=== PATIENT | male | born 1960 | race Caucasian/White ===

== ENCOUNTER 2017-11-20 17:34 | Emergency (ER) | payer BC ==
--- NOTE | 2017-11-20 21:04 | EDM.PDOC ---
ED HPI GENERAL MEDICAL PROBLEM - General Chief Complaint: Back Pain or Injury Stated Complaint: BELIEVES THERE IS A RIB OUT OF PLACE Time Seen by Provider: 11/20/17 19:24 Source of Information: Reports: Patient, Family History Limitations: Reports: No Limitations - History of Present Illness INITIAL COMMENTS - FREE TEXT/NARRATIVE: This is a 57-year-old male. Previous this week he did some straining and felt like he popped a rib in his anterior chest along the costochondral margin. He states he feels like he popped out of place. He went to see a chiropractor who apparently put the rib back into place and he felt like he was doing good. Then he did some work and a confined space having to use his arms to get him into the confined space and out of it and he feels like he popped a rib out of place again. He says when it hurts and hurts in the front and then seems to radiate around to the back on the right side. It is very painful to cough and deep breathe. He did go to the walk-in clinic yesterday was placed on some antibiotics because of his cough and he was tested for the flu that was negative. I explained to him we don't have a chiropractor on staff and he would need to follow-up with his own chiropractor duplicates his rib back into place. Right Chest Pain Score (Numeric/FACES): 9 - Related Data Allergies Allergy/AdvReac Type Severity Reaction Status Date / Time No Known Allergies Allergy Verified 11/20/17 18:05 Home Meds: Home Meds Insulin Aspart [NovoLOG] 1 dose SUBCUT ASDIRECTED 11/20/17 [History] Insulin Glargine,Hum.Rec.Anlog [Lantus Solostar] 80 units SUBCUT QAM 11/20/17 [ History] Lisinopril 2.5 mg PO DAILY 11/20/17 [History] Metoprolol Succinate [Toprol XL] 50 mg PO QPM 11/20/17 [History] Metoprolol Succinate [Toprol Xl] 200 mg PO QAM 11/20/17 [History] Orphenadrine [Norflex] 100 mg PO BID PRN #15 tab.er 11/20/17 [Rx] Past Medical History Other Cardiovascular History: defibrillator Other Musculoskeletal History: partial tear right rotator culff - Past Surgical History Cardiovascular Surgical History: Reports: Cardiac Ablation Social & Family History - Tobacco Use Smoking Status *Q: Never Smoker Second Hand Smoke Exposure: No - Caffeine Use Caffeine Use: Reports: None - Recreational Drug Use Recreational Drug Use: No ED ROS GENERAL - Review of Systems Review Of Systems: See Below Constitutional: Denies: Fever, Chills HEENT: Reports: No Symptoms Respiratory: Reports: Cough Cardiovascular: Reports: Chest Pain Endocrine: Reports: No Symptoms GI/Abdominal: Reports: No Symptoms : Reports: No Symptoms Musculoskeletal: Reports: Other (Chest wall pain) Skin: Reports: No Symptoms Neurological: Reports: No Symptoms Psychiatric: Reports: No Symptoms Hematologic/Lymphatic: Reports: No Symptoms ED EXAM, UPPER BACK/NECK PAIN - Physical Exam Exam: See Below Exam Limited By: No Limitations General Appearance: Alert, WD/WN, No Apparent Distress Eye Exam: Bilateral Eye: Normal Inspection Ears Exam: Normal External Exam Nose Exam: Normal Inspection Throat/Mouth Exam: Normal Inspection, Normal Lips, Normal Voice, No Airway Compromise Head Exam: Normocephalic Neck Exam: Full Range of Motion Cardiovascular/Respiratory: Regular Rate, Rhythm, Other (Palpation of the anterior chest reveals around the fifth rib at the costochondral margin tenderness on palpation reproducing some sharp pain without palpation, he has no other tenderness noted, he is noted to when he twists or coughs or breathes deep he has point tenderness in that area around the fifth rib in the costochondral margin that radiates around to his back) GI/Abdominal: Soft, Non-Tender Back Exam: Full Range of Motion Extremities: Normal Inspection, Normal Range of Motion Neurologic: No Motor/Sensory Deficits, Alert, Normal Mood/Affect, Oriented x 3 Psychiatric: Normal Affect, Normal Mood Skin Exam: Normal Color, Warm/Dry Course - Vital Signs Last Recorded V/S: Last Vital Signs Temp 98.4 F 11/20/17 17:59 Pulse 66 11/20/17 17:59 Resp 12 11/20/17 17:59 BP 142/85 H 11/20/17 17:59 Pulse Ox 64 L 11/20/17 17:59 - Re-Assessments/Exams Free Text/Narrative Re-Assessment/Exam: 11/21/17 07:32 I've encouraged the patient to call his chiropractor on Wednesday for another adjustment and then next time don't be doing any sort of straining heavy work with his right arm. I explained to him that this kind of injury with costochondritis can take several weeks to heal. Departure - Departure Time of Disposition: 21:00 Disposition: Home, Self-Care 01 Condition: Good Clinical Impression: Acute costochondritis, Muscle spasm, Rib pain on right side Rib sprain Qualifiers: Encounter type: initial encounter Qualified Code(s): S23.41XA - Sprain of ribs , initial encounter - Discharge Information Prescriptions: Orphenadrine [Norflex] 100 mg PO BID PRN #15 tab.er PRN Reason: Spasms Instructions: Muscle Strain, [id number] Referrals: Joann Patel AUTO SERVICE ADVISOR [Primary Care Provider] - Forms: ED Department Discharge Additional Instructions: Use heat to your chest to help with the soreness, use a pillow and rapid around your chest if you have to sneeze cough or take a deep breath to help stabilize the rib, use the muscle relaxer as needed especially at nighttime for sleep, take Aleve 2 tablets 3 times a day with food, follow-up with your chiropractor this week for recheck to get that rib back in place, try not to do any strenuous lifting or use with your right arm since that will aggravate your rib pain, return to the ER if needed
== END 2017-11-20 21:07 | disposition home or self-care (01) ==
LOC: JD.ED 17:34
DX: S23.41XA Sprain of ribs, initial encounter (principal); M94.0 Chondrocostal junction syndrome [Tietze]; M62.838 Other muscle spasm; X58.XXXA Exposure to other specified factors, initial encounter
CPT/HCPCS: 99282; 99283

== ENCOUNTER 2021-03-30 12:02 | Emergency (ER) | payer BC ==
[2021-03-30] MEDS ORDERED: Sodium Chloride 0.9% 10 ML Syringe FLUSH PRN (12:16)
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
[2021-03-30] MEDS ORDERED: Ondansetron 4 MG/2 ML SDV IVPUSH ONE (14:18)
[2021-03-30] MEDS ORDERED: HYDROmorphone 0.5 MG/0.5 ML Syringe IVPUSH ONE (14:18)
--- NOTE | 2021-03-31 07:42 | CR ---
Left tibia and fibula: AP and lateral views of the left tibia and fibula were obtained. Comparison: No previous study is available. Chondrocalcinosis is noted within the medial and lateral menisci within the knee. Small calcification is noted above the fibular head which appears to be old. Minimal spur is noted at the attachment of the Achilles tendon to the calcaneus. No acute fracture or other bony abnormality is appreciated. Impression: 1. Chondrocalcinosis and other findings believed to be incidental as noted above. 2. No acute osseous finding is appreciated. Diagnostic code #2
--- NOTE | 2021-03-31 08:14 | CT ---
CT cervical spine Technique: Multiple axial sections were obtained from above C1 inferiorly through the T2 vertebral body. Reconstructed coronal and sagittal images were also obtained. Comparison: No prior cervical spine imaging is available. Findings: Vertebral body heights and disc spaces are maintained. Minimal degenerative apophyseal change is noted. No bony central or bony neural foraminal stenosis is seen. Visualized lung apices are clear. No acute fracture or subluxation is seen. Mild degenerative change is noted between the dens and anterior arch of C1. Slight degenerative change is noted within the uncovertebral joints at C4-5 and C5-6. No acute fracture or subluxation is seen. Impression: 1. Mild degenerative change as noted above. 2. No acute fracture or subluxation is seen. Diagnostic code #2 I agree with preliminary report from [facility], finalized on 03/30/21, 2:22 PM CDT, code 1
--- NOTE | 2021-03-31 08:18 | CT ---
CT chest Technique: Multiple axial sections were obtained from above the lung apices inferiorly through the lung bases. Intravenous contrast was utilized. Reconstructed coronal and sagittal images were also obtained. Comparison: Prior chest x-ray of 11/19/17. Findings: Artifact is noted from AICD. Thoracic aorta shows no aneurysm. Very minimal coronary artery calcification is seen. Small lymph nodes are seen within the mediastinum which are felt to be within normal limits. No axillary adenopathy is appreciated. Lung window settings were reviewed. No acute parenchymal change is seen. No pleural effusions are noted. There is a small subpleural nodule being seen within the left lung base measuring about 5 mm. Bone window settings were reviewed which show slight anterior wedge deformity within T8 which is most likely chronic. No acute osseous abnormality is appreciated. Impression: 1. Findings believed to be chronic as noted above. 2. 5 mm nodule. Recommend noncontrast CT study in 12 months to confirm stability. 3. Nothing acute is otherwise seen. Diagnostic code #2 I mildly disagree with preliminary report from [facility], finalized on 03/30/21, 2:25 PM CDT, code 2 CT abdomen and pelvis Technique: Multiple axial sections were obtained from above the dome of the diaphragm inferiorly through the pubic symphysis. Intravenous contrast was utilized. Reconstructed coronal and sagittal images were also obtained. Comparison: No prior CT abdomen or pelvis exam is available. Findings: Liver contains no focal abnormality. Small to moderate sized hiatal hernia is noted. Spleen size is normal. Gallbladder contains no calcified gallstones. Adrenal glands show no nodule. No abnormality is appreciated within the kidneys. Spleen appears within normal limits. Abdominal aorta shows no aneurysm. No retroperitoneal adenopathy or mesenteric abnormalities are seen. Appendix is seen which is normal. Increased density is noted within the fat of the anterior abdomen most likely relating to previous subcutaneous injections. No pelvic mass or adenopathy is appreciated. No free fluid or inflammatory change is seen. Bone window settings were reviewed which show severe disc space narrowing at L5-S1 with anterior and posterior osteophytes as well as degenerative apophyseal change. No acute osseous finding is appreciated. Impression: 1. Findings as noted above which are felt to be chronic. 2. Moderate sized hiatal hernia. 3. Nothing acute is appreciated on CT study of the abdomen and pelvis. Diagnostic code #2 I agree with preliminary report from [facility], finalized on 03/30/21, 2:26 PM CDT, code 1
--- NOTE | 2021-03-31 08:19 | CT ---
Head CT Technique: Multiple axial sections through the brain were obtained. Intravenous contrast not utilized. Reconstructed coronal and sagittal images were obtained. Comparison: No prior intracranial imaging is available. Findings: Ventricles along with basal cisterns and sulci over the convexities appear within normal limits for the patient's age. No abnormal parenchymal densities are seen. No evidence of intracranial hemorrhage is seen. No midline shift or mass-effect is appreciated. Bone window settings were reviewed. Mild mucosal thickening is seen within the right ethmoid sinuses. No acute abnormality is noted within the visualized mastoid sinuses. No acute calvarial abnormality is appreciated. Impression: 1. Slight mucosal thickening within the right ethmoid sinus most likely chronic. 2. Nothing acute is appreciated on noncontrast CT study of the abdomen and pelvis. Diagnostic code #2 I agree with preliminary report from [facility], finalized on 03/30/21, 2:26 PM CDT, code 1
== END 2021-03-30 14:49 | disposition home or self-care (01) ==
LOC: JD.ED 12:02
DX: S80.12XA Contusion of left lower leg, initial encounter (principal); S01.01XA Laceration without foreign body of scalp, initial encounter; S43.215A Anterior dislocation of left sternoclavicular joint, initial encounter; E10.9 Type 1 diabetes mellitus without complications; Z79.899 Other long term (current) drug therapy; V86.59XA Driver of other special all-terrain or other off-road motor vehicle injured in nontraffic accident, initial encounter
CPT/HCPCS: 36415; 70450; 71260; 72125; 73590; 74177; 80053; 83690; 85025; 96374; 96375; 99284; J1170; J2405

== ENCOUNTER 2022-07-04 20:27 | Emergency (ER) | payer BC ==
[2022-07-04] MEDS ORDERED: oxyCODONE 5 MG Tab PO ONE (22:39)
== END 2022-07-04 22:40 | disposition home or self-care (01) ==
LOC: JD.ED 20:27
DX: K08.89 Other specified disorders of teeth and supporting structures (principal); I10 Essential (primary) hypertension; E10.9 Type 1 diabetes mellitus without complications
CPT/HCPCS: 99282; A9270; 99283

== ENCOUNTER 2024-10-15 11:18 | Emergency (ER) | payer BC ==
[2024-10-15 11:53] LABS: APPEARANCE,URINE TURBID (Clear); BILIRUBIN,URINE 2+ (Negative); COLOR,URINE BROWN (Yellow); GLUCOSE,URINE 2+ (Negative); KETONES,URINE TRACE (Negative); LEUKOCYTE ESTERASE,URINE TRACE (Negative); NITRITE,URINE POSITIVE (Negative); OCCULT BLOOD,URINE 3+ (Negative); PROTEIN,URINE 3+ (Negative)
[2024-10-15 12:13] LABS: RBC,URINE TOO NUMEROUS TO CNT /hpf (0-5)
[2024-10-15] MEDS: Sodium Chloride 0.9% 10 ML Syringe FLUSH PRN (12:18)
[2024-10-15 12:19] LABS: SQUAMOUS EPITHELIAL CELLS,UR 0-5 /hpf (0-5); WBC CLUMPS,URINE MODERATE /hpf (NOT SEEN)
[2024-10-15] MEDS: Sodium Chloride 0.9% 1,000 ML IV STA (12:19)
[2024-10-15 12:27] LABS: BACTERIA,URINE MODERATE /hpf (FEW); MUCUS,URINE FEW /hpf (FEW); YEAST BUDDING,URINE RARE (NOT SEEN)
[2024-10-15 12:30] LABS: BASOPHILS ABSOLUTE AUTO 0.1 K/mm3 (0.0-0.2); BASOPHILS PERCENT AUTO 0.6 % (0.0-1.0); EOSINOPHILS PERCENT AUTO 0.1 % (0.0-6.0); HEMATOCRIT 39.4 % (42.0-52.0); HEMOGLOBIN 13.1 gm/dl (14.0-18.0); IMMATURE GRAN ABSOLUTE AUTO 0.03 K/mm3 (0.00-0.05); IMMATURE GRAN PERCENT AUTO 0.3 % (0.0-0.4); LYMPHOCYTES ABSOLUTE AUTO 1.4 K/mm3 (1.0-4.8); LYMPHOCYTES PERCENT AUTO 12.9 % (24.0-44.0); MEAN CORPUSCULAR HEMOGLOBIN 31.7 pg (28.0-32.0); MEAN CORPUSCULAR HGB CONC 33.2 g/dl (32.0-36.0); MEAN CORPUSCULAR VOLUME 95.4 fl (83.0-99.0); MEAN PLATELET VOLUME 10.3 fl (9.4-12.4); MONOCYTES ABSOLUTE AUTO 0.9 K/mm3 (0.0-0.8); MONOCYTES PERCENT AUTO 7.7 % (0.0-8.0); NEUTROPHILS ABSOLUTE AUTO 8.6 K/mm3 (1.8-7.7); NEUTROPHILS PERCENT AUTO 78.4 % (41.0-71.0); PLATELET COUNT,PLT 193 K/mm3 (150-400); RED BLOOD CELL COUNT 4.13 M/mm3 (4.52-5.90); WHITE BLOOD CELL COUNT,WBC 11.02 K/mm3 (3.9-11.3)
[2024-10-15 13:00] LABS: A/G RATIO 0.8 (1-2); ALBUMIN 3.2 g/dl (3.4-5.0); ANION GAP 10.1 (5-15); BILIRUBIN TOTAL 0.5 mg/dL (0.2-1.0); CALCIUM 8.8 mg/dL (8.5-10.1); EST CRCL DRUG DOSING (CG) 78.44 mL/min; POTASSIUM,K 4.1 mEq/L (3.5-5.1); PROTEIN TOTAL,TP 7.1 g/dl (6.4-8.2)
[2024-10-15] MEDS: cefTRIAXone 2 GM in Sodium Chloride 0.9% 100 ML IV ONE (13:22)
== END 2024-10-15 14:11 | disposition home or self-care (01) ==
LOC: JD.ED 11:18
DX: N30.01 Acute cystitis with hematuria (principal); R91.1 Solitary pulmonary nodule; I10 Essential (primary) hypertension; E10.9 Type 1 diabetes mellitus without complications; Z79.4 Long term (current) use of insulin; Z79.899 Other long term (current) drug therapy
CPT/HCPCS: 36415; 74176; 80053; 81001; 83690; 85025; 87086; 96361; 96365; 99284; J0696; J3490; J7030